=== PATIENT | female | born 1990 | race Caucasian/White ===

== ENCOUNTER 2018-10-23 01:16 | Emergency (ER) | payer OTHER ==
[2018-10-23 01:29] VITALS: BP 134/90; PULSE 78; RESP 16; TEMP 98.6
--- NOTE | 2018-10-23 01:29 | ED ---
General Adult HPI - General Chief complaint: Skin/Abscess/Foreign Body Stated complaint: Abcess on right forearm Time Seen by Provider: 10/23/18 01:22 Source: patient Mode of arrival: ambulatory - History of Present Illness Initial comments: 28-year-old female presenting today for chief complaint of right forearm redness possible abscess. Patient states about 3 days ago she noticed a bump that looked like a pimple on her right forearm. She states that her boyfriend attempted to pop it. She states that today when looking in the area she saw a surrounding redness that was moving up towards her elbow. Patient was concerned R spread of infection and presents emergency department for further evaluation. Patient denies flulike symptoms denies fevers. Patient denies history of MRSA. Patient denies any recent antibiotic use. Review systems negative. Upon arrival patient appears well no signs of acute distress. Afebrile. - Related Data Previous Rx's Medication Instructions Recorded HYDROcodone/APAP 5-325MG [[place] 1 - 2 tab PO Q4H PRN #12 tab 09/09/15 5-325] Cephalexin [Keflex] 500 mg PO Q6HR 10 Days #40 cap 10/23/18 Sulfamethox-Tmp 800-160Mg [Bactrim 1 tab PO Q12HR 10 Days #20 tab 10/23/18 DS 800-160 mg] Allergies Allergy/AdvReac Type Severity Reaction Status Date / Time No Known Allergies Allergy Verified 09/09/15 17:53 Review of Systems ROS Statement: Those systems with pertinent positive or pertinent negative responses have been documented in the HPI. ROS Other: All systems not noted in ROS Statement are negative. Past Medical History Additional Past Medical History / Comment(s): MISCARRIAGE History of Any Multi-Drug Resistant Organisms: None Reported Past Surgical History: Tonsillectomy Additional Past Surgical History / Comment(s): D&C summer 2013 Past Anesthesia/Blood Transfusion Reactions: No Reported Reaction Past Psychological History: No Psychological Hx Reported Smoking Status: Current every day smoker Past Alcohol Use History: None Reported Past Drug Use History: Marijuana General Exam - General Exam Comments Initial Comments: General: The patient is awake and alert, in no distress, and does not appear acutely ill. Eye: Pupils are equal, round, extra-ocular movements are intact. No nystagmus. There is normal conjunctiva bilaterally. No signs of icterus. Cardiovascular: There is a regular rate and rhythm. No murmur, rub or gallop is appreciated. Respiratory: Lungs are clear to auscultation, respirations are non-labored, breath sounds are equal. No wheezes, stridor, rales, or rhonchi. Musculoskeletal: Normal ROM, no tenderness. Strength 5/5. Sensation intact. Pulses equal bilaterally 2+. Neurological: A&O x 3. CN II-XII intact grossly, There are no obvious motor or sensory deficits. Coordination appears grossly intact. Speech is normal. Skin: Skin is warm and dry. small raised crusted over pustul less than 1 cm in diameter no fluctuance. Small amount induration with surrounding erythema, approximately 2 inches of streaking proximally. No palpable lymphadenopathy. No crepitus. Patient the skin blistering. Psychiatric: Cooperative, appropriate mood & affect, normal judgment. Course Vital Signs 10/23/18 01:25 Temperature 98.6 F Pulse Rate 78 Respiratory 16 Rate Blood Pressure 134/90 O2 Sat by Pulse 94 L Oximetry Medical Decision Making - Medical Decision Making 28-year-old female presenting for possible abscess. There is no evidence of fluctuant abscess on examination there is very small pustule that appears to have been previously drained there is induration and surrounding cellulitis. Small amount of proximal spread of erythema. no previous abx use. No MRSA history. She is afebrile nontoxic appearing no signs of sepsis. Patient was given an IM dose of ceftriaxone sterile pack of Bactrim. Patient will be di scharged with oral antibiotics Keflex and Bactrim. Return parameters were discussed at length area was outlined and patient was discharged appearing well she is agreeable to all return parameters which were discussed in detail. Disposition Clinical Impression: Cellulitis Disposition: HOME SELF-CARE Condition: Good Instructions (If sedation given, give patient instructions): Cellulitis (ED) Additional Instructions: Please use medication as discussed. Please follow-up with family doctor in the next 2 days . Please watch the spread of redness as discussed, if there is signficiant spread outside of the line (>1-2 in) in a short amount of time, please immediately return to the ER as discussed. Please return to emergency room if the symptoms increase or worsen or for any other concerns-including flu- like symptoms, fever. Prescriptions: Sulfamethox-Tmp 800-160Mg [Bactrim DS 800-160 mg] 1 tab PO Q12HR 10 Days #20 tab Cephalexin [Keflex] 500 mg PO Q6HR 10 Days #40 cap Is patient prescribed a controlled substance at d/c from ED?: No Referrals: Tara Packer MD [Primary Care Provider] - 1-2 days Time of Disposition: 01:34
[2018-10-23] MEDS ORDERED: cefTRIAXone 1,000 MG VIAL (IM USE) IM STA (01:32)
[2018-10-23] MEDS ORDERED: SULFAMETH-TMP DS STARTER PACK 2 TAB BTL PO STA (01:33)
== END 2018-10-23 01:53 | disposition home or self-care (01) ==
LOC: EC 01:16
DX: L03.113 Cellulitis of right upper limb (principal); F17.200 Nicotine dependence, unspecified, uncomplicated
CPT/HCPCS: 99283; 96372; J0696

== ENCOUNTER 2019-07-27 05:57 | Inpatient (IN) | payer OTHER ==
[2019-07-27] MEDS ORDERED: METHYLERGONOVINE 0.2 MG/ML 1 ML AMP IM PRN (06:19)
[2019-07-27] MEDS ORDERED: TERBUTALINE 1 MG/ML VIAL SQ PRN (06:19)
[2019-07-27] MEDS ORDERED: OXYTOCIN 10 UNIT/ML 1 ML VIAL IM PRN (06:19)
[2019-07-27] MEDS ORDERED: LIDOCAINE 0.5% (PF) 5 MG/ML (50 ML SDV) SQ PRN (06:19)
[2019-07-27] MEDS ORDERED: CARBOPROST TROMETHAMINE 250 MCG/ML 1 ML AMP IM PRN (06:19)
[2019-07-27] MEDS: LACTATED RINGERS 1,000 ML IV SCH ×2 (06:36→11:18)
[2019-07-27] MEDS: OXYTOCIN 30 UNITS/500 ML NS 30 UNIT in SALINE 1 500ML.BAG IV SCH (06:42)
[2019-07-27 07:01] LABS: Basophils % (A) 0 %; Eosinophils # (A) 0.1 k/uL (0-0.7); Eosinophils % (A) 2 %; HCT 33.2 % (34.0-46.0); HGB 11.1 gm/dL (11.4-16.0); Lymphocytes # (A) 1.3 k/uL (1.0-4.8); Lymphocytes % (A) 22 %; MCH 32.6 pg (25.0-35.0); MCHC 33.6 g/dL (31.0-37.0); Mean Platelet Volume 7.5; Monocytes # (A) 0.3 k/uL (0-1.0); Monocytes % (A) 4 %; Neutrophils # (A) 4.3 k/uL (1.3-7.7); Neutrophils % (A) 70 %; Platelet Count 182 k/uL (150-450); RBC 3.42 m/uL (3.80-5.40); RDW 13.1 % (11.5-15.5); WBC 6.2 k/uL (3.8-10.6)
[2019-07-27 07:10] LABS: Amphetamine Screen,Urine Not Detected (NotDetected); Barbiturate Screen,Urine Not Detected (NotDetected); Benzodiazepines Screen,Urine Not Detected (NotDetected); Cocaine Screen,Urine Not Detected (NotDetected); Methadone Screen, Urine Not Detected (NotDetected); Opiate Screen,Urine Not Detected (NotDetected); Oxycodone Screen, Urine Not Detected (NotDetected); Phencyclidine Screen,Urine Not Detected (NotDetected); Tricyclic Antidepressant,Urine Not Detected (NotDetected); Urn Cannabinoid Scrn Not Detected (NotDetected)
--- NOTE | 2019-07-27 08:05 | P.HPOB ---
History of Present Illness H&P Date: 07/27/19 Chief Complaint: Here for elective induction of labor This is a 28-year-old white female 5 para 1031 EDC 08/02/2038 weeks gestation. Patient presents today for elective induction of labor with favorable multiparous cervix. Fetus is been active throughout the . She admits to mild irregular uterine contractions, denies fluid leakage or vaginal bleeding. Past medical history is significant for positive hepatitis B, positive hepatitis C. Patient has seen infectious disease and plan is for follow-up . She is a history of anxiety as well. Past surgical history D&C for miscarriages, tonsillectomy. Current medications vitamins daily. ALLERGIES none known. Family history significant for Down syndrome and diabetes. Social history patient is single, she smokes currently one half pack tobacco per day, she has a history of heroin, [place], and marijuana. 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 history is significant for blood type O+, rubella status immune. Pap smear showing low-grade changes. Group B strep cultures negative. One-hour Glucola 145, three-hour GTT within normal limits. Urine drug screen, gonorrhea and chlamydia cultures, HIV testing all negative. VDRL nonreactive. On exam she is 5 foot 5 inches, 180 pounds, blood pressure on admission 134/81. The general physical exam is within normal limits. Patient does have multiple tattoos across the body. Abdomen is soft and nontender. Extremities reveal no edema. Chest is clear in all [place]. Cervix is 3-4 cm dilated, 60% effaced, an terior, soft, vertex, -2. Artificial amniorrhexis reveals clear fluid. heart rate is consistent with reactive NST. Impression: 39 week intrauterine , here for elective induction of l abor. Positive hepatitis B and C, and history of substance abuse. Late care. Plan: Oxytocin augmentation per hospital protocol. Analgesic options have been reviewed with the patient. Close maternal and surveillance. director career services consult has been placed. Anticipate normal spontaneous vaginal delivery. Review of Systems Constitutional: Reports as per HPI Past Medical History Additional Past Medical History / Comment(s): MISCARRIAGE History of Any Multi-Drug Resistant Organisms: MRSA Date of last positivie culture/infection: right arm MDRO Source:: 2019 Past Surgical History: Tonsillectomy Additional Past Surgical History / Comment(s): D&C summer 2013 Past Anesthesia/Blood Transfusion Reactions: No Reported Reaction Past Psychological History: Anxiety, Panic Disorder Smoking Status: Current every day smoker Past Alcohol Use History: None Reported Past Drug Use History: Heroin, Marijuana Additional Drug Use History / Comment(s): STATES MEDICAL MARIJUANA CARD, pt states not using during , last use of heroin 3 weeks before finding out in Dec she was pregnanct, was using every other day - Past Family History Mother Family Medical History: No Reported History Medications and Allergies Home Medications Medication Instructions Recorded Confirmed Type Ferrous Sulfate [Iron] 325 mg PO BID 07/27/19 07/27/19 History Pnv No.95/Ferrous Fum/Folic AC 1 each PO DAILY 07/27/19 07/27/19 History [ Multivitamin Tablet] Ivq646/Iron/FA/O3/Dha/Epa/Fish 1 each PO DAILY 07/27/19 07/27/19 History [ Multi-Dha Softgel] Allergies Allergy/AdvReac Type Severity Reaction Status Date / Time No Known Allergies Allergy Verified 07/27/19 06:08 Exam Vital Signs Temp Pulse Resp BP 07/27/19 06:07 99.0 F 95 18 134/81 Intake and Output 07/26/19 07/27/19 07/27/19 22:59 06:59 14:59 Other: Weight 81.647 kg See dictation under HPI please Results Result Diagrams: 07/27/19 06:45 Abnormal Lab Results - Last 24 Hours (Table) 07/27/19 Range/Units 06:45 RBC 3.42 L (3.80-5.40) m/uL Hgb 11.1 L (11.4-16.0) gm/dL Hct 33.2 L (34.0-46.0) % Assessment and Plan Assessment: 39 week intrauterine , history of hepatitis B and hepatitis C, history of substance abuse, late care. Here for elective induction of labor. All signs reassuring. Plan: Close maternal and surveillance. Oxytocin per hospital protocol. director career services consult has been placed. Anticipate normal spontaneous vaginal delivery. Time with Patient: Less than 30
[2019-07-27] MEDS ORDERED: ROPIVACAINE 5MG/ML 20ML VIAL ONE (10:55)
[2019-07-27] MEDS ORDERED: SODIUM CHLORIDE 0.9% 100 ML BAG ONE (10:55)
[2019-07-27] MEDS ORDERED: fentaNYL (PF) 50 MCG/ML 5 ML AMP ONE (10:55)
[2019-07-27] MEDS ORDERED: diphenhydrAMINE 50 MG/ML 1 ML VIAL IVP PRN ×2 (13:47)
[2019-07-27] MEDS ORDERED: LANOLIN CREAM 5 GM TUBE TOPICAL PRN (13:47)
[2019-07-27] MEDS ORDERED: WITCH HAZEL 1 EACH MED..PAD TOPICAL PRN (13:47)
[2019-07-27] MEDS ORDERED: ZOLPIDEM 5 MG TAB PO PRN (13:47)
[2019-07-27] MEDS ORDERED: HYDROCORTISONE 2.5% RECTAL CREAM 30 GM TUBE RECTAL PRN (13:47)
[2019-07-27] MEDS ORDERED: diphenhydrAMINE 50 MG CAP PO PRN (13:47)
[2019-07-27] MEDS ORDERED: BENZOCAINE/MENTHOL SPRAY 1 GM/SPRAY AEROSOL TOPICAL PRN (13:47)
[2019-07-27] MEDS ORDERED: SIMETHICONE 80 MG CHEWABLE PO PRN (13:47)
[2019-07-27] MEDS ORDERED: diphenhydrAMINE 25 MG CAP PO PRN (13:47)
--- NOTE | 2019-07-27 13:47 | P.PROBDLV ---
Vaginal Delivery Note - . Vaginal Delivery Note: This is a 28-year-old white female 5 para 1031 EDC 08/03/2019 at 39 weeks gestation. Patient presented for induction with favorable multiparous cervix. History is significant for late care, history of substance abuse, hepatitis B and C positive. Please see dictated history and physical for details. Group B strep cultures negative. Artificial amniorrhexis revealed very light meconium-stained fluid. Oxytocin was started and titrated per hospital protocol. Patient requested epidural and did well with same. heart tones were reassuring throughout the first and second stages of labor. Patient was judged to be completely dilated at 1327 hrs. and began the second stage of labor at that time. The perineal body was prepped and draped in usual sterile fashion. With excellent expulsive efforts the 's head delivered occiput anterior and restituted accordingly. There was a nuchal cord 1 that was reduced. The oropharynx, nasopharynx, and external nares were all bulb suctioned on the perineal body. Patient was officially delivered of a liveborn male at 1333 hours. Umbilical cord was doubly clamped and ligated, he was handed to waiting nurses for evaluation where scores of 9 and 9 at one and 5 minutes respectively were given. Placenta delivered spontaneously, it was inspected and noted to be intact with trivascular cord at 1336 hours. At this time the perineal body is redraped. Careful inspection of the cervix, vagina, perineum, periurethral, and perirectal areas revealed a small right labial laceration. This was repaired in the usual fashion with a single [id number] suture of repeat. Fundus is firm and in the midline, symmetric and 18 week size. Estimated blood loss 200 mL's. Patient is requesting circumcision for her son.
[2019-07-27] MEDS ORDERED: OXYTOCIN 20 UNITS/1000 ML NS 1,000 ML IV SCH (14:00)
[2019-07-27] MEDS: IBUPROFEN 600 MG TAB PO PRN ×2 (15:46→22:44)
[2019-07-27] MEDS: ACETAMINOPHEN TAB 325 MG TAB PO PRN (20:23)
[2019-07-27] MEDS: SENNOSIDES-DOCUSATE SODIUM 1 EACH TAB PO SCH (20:24)
[2019-07-28] MEDS ORDERED: BUTORPHANOL 1 MG/ML 1 ML VIAL IV PRN (00:05)
[2019-07-28 00:15] LABS: Basophils % (A) 0 %; Eosinophils # (A) 0.1 k/uL (0-0.7); Eosinophils % (A) 1 %; HCT 27.6 % (34.0-46.0); Lymphocytes # (A) 1.2 k/uL (1.0-4.8); Lymphocytes % (A) 17 %; MCH 32.2 pg (25.0-35.0); MCHC 33.5 g/dL (31.0-37.0); Mean Platelet Volume 7.6; Monocytes # (A) 0.3 k/uL (0-1.0); Monocytes % (A) 5 %; Neutrophils # (A) 5.4 k/uL (1.3-7.7); Neutrophils % (A) 76 %; Platelet Count 173 k/uL (150-450); RBC 2.88 m/uL (3.80-5.40); RDW 12.8 % (11.5-15.5); WBC 7.1 k/uL (3.8-10.6)
[2019-07-28 00:27] LABS: HGB 9.3 gm/dL (11.4-16.0)
--- NOTE | 2019-07-28 00:44 | P.PN ---
Progress Note - Text Progress Note Date: 07/28/19 I responded to the bedside by request of nursing staff who recognized increased bleeding. Patient states that approximately 9:30 she passed a large clot. She has continued to pass clots, nursing estimate is over 1000 mL blood loss. Pulse 99. Patient complains that "it's like I am having contractions". On examination at the bedside external genitalia is intact. Previously placed stitch is well approximated. IV is restarted, stat CBC is drawn, and Stadol 1 mg is given. The uterus is at the umbilicus on palpation. I am able to express another 500 mL of clot from high in the uterine fundus on bimanual examination. Patient tolerates this reasonably well. After examination bleeding appears normal. No further clot passage. Pulse 90, blood pressure 122/81. Symptomatically patient states she is feeling greatly improved. Hemoglobin returns at 9.3. We'll continue IV access through the night, giving another 500 mL of fluid at this time. Consider repeat CBC in the morning pending progress. Continue close surveillance.
[2019-07-28] MEDS: LACTATED RINGERS 1,000 ML IV SCH ×2 (01:28→20:04)
[2019-07-28] MEDS: ACETAMINOPHEN TAB 325 MG TAB PO PRN ×2 (05:05→20:03)
[2019-07-28] MEDS: SENNOSIDES-DOCUSATE SODIUM 1 EACH TAB PO SCH ×2 (07:28→20:03)
--- NOTE | 2019-07-28 08:57 | P.DS ---
Providers Date of admission: 07/27/19 05:57 Expected date of discharge: 07/28/19 Attending physician: Carmella Nevarez Primary care physician: Stated None Hospital Course: This is a 28-year-old white female 5 para 1031 EDC 08/03/2019 at 39 weeks gestation. Patient presented for induction with favorable multiparous cervix. is remarkable for positive hepatitis B, positive hepatitis C, negative group B strep cultures, blood type O+, rubella status immune. Please see dictated history and physical for details. Artificial amniorrhexis revealed light meconium-stained fluid. Oxytocin was started and titrated per hospital protocol. Patient went on to deliver vaginally a liveborn male infant with scores of 9 and 9 at one and 5 minutes respectively. Infant weighed 6 lbs. 15 oz. or 3145 g. There was an estimated blood loss at the time of delivery of 200 mL and a small right labial laceration. Please see dictated delivery note for details. Approximate 10 hours into the . Patient was noted to have passed several large clots. Examination at the bedside did reveal clots and the uterine fundus, excised manually. Stadol was given 1 mg. Repeat hemoglobin was performed, hemoglobin 9.3. After this, vital signs stabilized. This morning patient is feeling well. Fundus is firm now and in the midline, approximately 18 week size, mobile and nontender. Extremities are negative. Lochia is minimal. Patient feels strong, denies dizziness or lightheadedness. She is not breast-feeding. [place] infant has been circumcised. Patient is judged to be in good condition for discharge home later today. She is reminded no intercourse, tampons or douching. She will use jjwl-ngw-ajlylul Advil or Aleve as needed for pain. I've asked her to call me with any fevers shakes or chills, foul smelling or copious lochia, with the passage of large blood clots, with any pain not alleviated by faoz-cab-srtkemo products, or indeed with any concerns. infant will follow-up with childcare teacher as per recommendations. Patient will see infectious disease specialist for treatment of the hepatitis B and hepatitis C as previously discussed with the . Assessment: Doing well day #1 Patient Condition at Discharge: Good Plan - Discharge Summary Discharge Rx Participant: No New Discharge Prescriptions: No Action Lcj345/Iron/FA/O3/Dha/Epa/Fish [ Multi-Dha Softgel] 1 each PO DAILY Pnv No.95/Ferrous Fum/Folic AC [ Multivitamin Tablet] 1 each PO DAILY Ferrous Sulfate [Iron] 325 mg PO BID Discharge Medication List Ferrous Sulfate [Iron] 325 mg PO BID 07/27/19 [History] Pnv No.95/Ferrous Fum/Folic AC [ Multivitamin Tablet] 1 each PO DAILY 07/27/19 [History] Opc360/Iron/FA/O3/Dha/Epa/Fish [ Multi-Dha Softgel] 1 each PO DAILY 07/27/19 [History] Follow up Appointment(s)/Referral(s): Carmella Nevarez MD [STAFF PHYSICIAN] - 6 Weeks
[2019-07-28] MEDS: IBUPROFEN 600 MG TAB PO PRN ×3 (09:24→23:42)
[2019-07-28] MEDS: OXYTOCIN 30 UNITS/500 ML NS 30 UNIT in SALINE 1 500ML.BAG IV SCH (21:11)
[2019-07-29] MEDS: IBUPROFEN 600 MG TAB PO PRN (07:59)
[2019-07-29] MEDS: SENNOSIDES-DOCUSATE SODIUM 1 EACH TAB PO SCH (08:00)
[2019-07-29 08:01] VITALS: BP 110/76; PULSE 90; RESP 16; TEMP 98.2
== END 2019-07-29 13:41 | disposition home or self-care (01) | DRG 806 ==
LOC: 4FBP 05:57
PROVIDERS: ADMIT Obstetrics & Gynecology; ATTEND Obstetrics & Gynecology
PROC: 3E033VJ Introduction of Other Hormone into Peripheral Vein, Percutaneous Approach (ICD-10-PCS; principal; 2019-07-27)
PROC: 0HQ9XZZ Repair Perineum Skin, External Approach (ICD-10-PCS; principal; 2019-07-27)
PROC: 10907ZC Drainage of Amniotic Fluid, Therapeutic from Products of Conception, Via Natural or Artificial Opening (ICD-10-PCS; principal; 2019-07-27)
PROC: 3E0R3BZ Introduction of Anesthetic Agent into Spinal Canal, Percutaneous Approach (ICD-10-PCS; principal; 2019-07-27)
PROC: 10E0XZZ Delivery of Products of Conception, External Approach (ICD-10-PCS; principal; 2019-07-27)
PROC: 00HU33Z Insertion of Infusion Device into Spinal Canal, Percutaneous Approach (ICD-10-PCS; principal; 2019-07-27)
DX: O77.0 Labor and delivery complicated by meconium in amniotic fluid (principal); O98.42 Viral hepatitis complicating childbirth; Z37.0 Single live birth; B19.10 Unspecified viral hepatitis B without hepatic coma; O72.1 Other immediate postpartum hemorrhage; O69.81X0 Labor and delivery complicated by cord around neck, without compression, not applicable or unspecified; B19.20 Unspecified viral hepatitis C without hepatic coma; O70.0 First degree perineal laceration during delivery; O99.334 Smoking (tobacco) complicating childbirth; F11.11 Opioid abuse, in remission; F12.11 Cannabis abuse, in remission; F15.11 Other stimulant abuse, in remission; F17.210 Nicotine dependence, cigarettes, uncomplicated; Z3A.39 39 weeks gestation of pregnancy; Z79.899 Other long term (current) drug therapy; Z86.14 Personal history of Methicillin resistant Staphylococcus aureus infection; Z86.59 Personal history of other mental and behavioral disorders; Z90.89 Acquired absence of other organs; Z98.890 Other specified postprocedural states; Z82.79 Family history of other congenital malformations, deformations and chromosomal abnormalities; Z83.3 Family history of diabetes mellitus
CPT/HCPCS: 80306; 85025; 86850; 86900; 86901; 88307

== ENCOUNTER 2021-10-06 22:54 | Inpatient (IN) | payer OTHER ==
[2021-10-06] MEDS ORDERED: OXYTOCIN 10 UNIT/ML 1 ML VIAL IM PRN (23:14)
[2021-10-06] MEDS ORDERED: CARBOPROST TROMETHAMINE 250 MCG/ML 1 ML AMP IM PRN (23:14)
[2021-10-06] MEDS ORDERED: TERBUTALINE 1 MG/ML VIAL SQ PRN (23:14)
[2021-10-06] MEDS ORDERED: LIDOCAINE 0.5% (PF) 5 MG/ML (50 ML SDV) SQ PRN (23:14)
[2021-10-06] MEDS ORDERED: METHYLERGONOVINE 0.2 MG/ML 1 ML AMP IM PRN (23:14)
[2021-10-06] MEDS ORDERED: OXYTOCIN 30 UNITS/500 ML NS 30 UNIT in SALINE 1 500ML.BAG IV SCH (23:15)
[2021-10-06] MEDS ORDERED: LACTATED RINGERS 1,000 ML IV SCH (23:15)
[2021-10-06] MEDS ORDERED: PENICILLIN G POTASSIUM 5,000,000 UNIT in DEXTROSE 5% IN WATER 100 ML IVPB ONE ×2 (23:30)
[2021-10-06] MEDS ORDERED: ROPIVACAINE 5MG/ML 20ML VIAL ONE (23:39)
[2021-10-06] MEDS ORDERED: fentaNYL (PF) 50 MCG/ML 5 ML AMP ONE (23:39)
[2021-10-06] MEDS ORDERED: SODIUM CHLORIDE 0.9% 100 ML BAG ONE (23:39)
[2021-10-06 23:55] LABS: Basophils % (A) 0 %; Eosinophils % (A) 1 %; HCT 37.9 % (34.0-46.0); HGB 12.6 gm/dL (11.4-16.0); Lymphocytes # (A) 0.9 k/uL (1.0-4.8); Lymphocytes % (A) 13 %; MCH 32.7 pg (25.0-35.0); MCHC 33.2 g/dL (31.0-37.0); MCV 98.5 fL (80.0-100.0); Mean Platelet Volume 8.1; Monocytes # (A) 0.4 k/uL (0-1.0); Monocytes % (A) 6 %; Neutrophils # (A) 5.3 k/uL (1.3-7.7); Neutrophils % (A) 79 %; Platelet Count 154 k/uL (150-450); RBC 3.84 m/uL (3.80-5.40); RDW 13.5 % (11.5-15.5); WBC 6.7 k/uL (3.8-10.6)
--- NOTE | 2021-10-07 00:24 | P.HPOB ---
History of Present Illness H&P Date: 10/07/21 Chief Complaint: Strong regular uterine contractions This is a 31-year-old 6 para 2031 EDC 10/24/2021 at 37-4/7 weeks' gestation who presents from home with strong regular uterine contractions. She denies fluid leakage or vaginal bleeding. Fetus is been active throughout the . Past medical history significant for anxiety, hepatitis B, hepatitis C in the past. Past surgical history D&Cs for miscarriages, tonsillectomy as a child. Social history is significant for V pain, marijuana in the past, heroin, methamphetamines, and tobacco in the past. 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 Family history significant for diabetes and Down syndrome. ALLERGIES none known. Obstetric history significant for blood type O positive, rubella status immune. Remaining labs uncertain as history and physical was not present at this time. On exam patient is 5 foot 5 inches, 168 pounds, blood pressure 139/88 on admission. General physical exam is within normal limits. Cervix is 9 cm dilated, 90% effaced, -1 station, vertex presentation. Artificial amniorrhexis reveals clear fluid. heart rate is consistent with reactive NST. Uterine contractions are occurring spontaneously every 3-4 minutes apart. Epidural has been placed. Impression: 37-4/7 weeks intrauterine , active labor. Group B strep status unknown. All signs otherwise reassuring. Medical history in the past consistent with hepatitis B and hepatitis C. Drug history also noted. Plan: Close maternal and surveillance. Anticipate normal spontaneous vaginal delivery. Penicillin G prophylaxis has been instituted. Epidural has been placed. Review of Systems Constitutional: Reports as per HPI Past Medical History Additional Past Medical History / Comment(s): MISCARRIAGE History of Any Multi-Drug Resistant Organisms: MRSA Date of last positivie culture/infection: right arm MDRO Source:: 2018 Past Surgical History: Tonsillectomy Additional Past Surgical History / Comment(s): D&C summer 2013 Past Anesthesia/Blood Transfusion Reactions: No Reported Reaction Past Psychological History: Anxiety Smoking Status: Former smoker, Vaper Past Drug Use History: Heroin, Marijuana, Methamphetamine - Past Family History Mother Family Medical History: No Reported History Additional Family Medical History / Comment(s): down's syndrome Medications and Allergies Home Medications Medication Instructions Recorded Confirmed Type Ferrous Sulfate [Iron] 325 mg PO ONCE 07/27/19 10/06/21 History Pnv No.95/Ferrous Fum/Folic AC 1 each PO DAILY 07/27/19 10/06/21 History [ Multivitamin Tablet] Allergies Allergy/AdvReac Type Severity Reaction Status Date / Time No Known Allergies Allergy Verified 10/06/21 23:00 Exam Intake and Output 10/06/21 10/06/21 10/07/21 14:59 22:59 06:59 Other: Weight 76.204 kg See dictation under HPI please Results Result Diagrams: 10/06/21 23:36 Abnormal Lab Results - Last 24 Hours (Table) 10/06/21 Range/Units 23:36 Lymphocytes # 0.9 L (1.0-4.8) k/uL Assessment and Plan Assessment: 37-4/7 weeks intrauterine , active spontaneous labor. All signs reassuring. Plan: Continue close maternal and surveillance. Antibiotic prophylaxis given. Urine drug screen will be sent to the lab. Anticipate normal spontaneous vaginal delivery. Time with Patient: Less than 30
[2021-10-07 01:09] LABS: Amphetamine Screen,Urine Not Detected (NotDetected); Barbiturate Screen,Urine Not Detected (NotDetected); Benzodiazepines Screen,Urine Not Detected (NotDetected); Cocaine Screen,Urine Not Detected (NotDetected); Methadone Screen, Urine Not Detected (NotDetected); Opiate Screen,Urine Not Detected (NotDetected); Oxycodone Screen, Urine Not Detected (NotDetected); Phencyclidine Screen,Urine Not Detected (NotDetected); Tricyclic Antidepressant,Urine Not Detected (NotDetected); Urn Cannabinoid Scrn Not Detected (NotDetected)
[2021-10-07] MEDS ORDERED: LANOLIN CREAM 5 GM TUBE TOPICAL PRN (01:46)
[2021-10-07] MEDS ORDERED: diphenhydrAMINE 50 MG/ML 1 ML VIAL IVP PRN ×2 (01:46)
[2021-10-07] MEDS ORDERED: diphenhydrAMINE 25 MG CAP PO PRN (01:46)
[2021-10-07] MEDS ORDERED: HYDROCORTISONE 2.5% RECTAL CREAM 30 GM TUBE RECTAL PRN (01:46)
[2021-10-07] MEDS ORDERED: diphenhydrAMINE 50 MG CAP PO PRN (01:46)
[2021-10-07] MEDS ORDERED: SIMETHICONE 80 MG CHEWABLE PO PRN (01:46)
[2021-10-07] MEDS ORDERED: BENZOCAINE/MENTHOL SPRAY 1 GM/SPRAY AEROSOL TOPICAL PRN (01:46)
[2021-10-07] MEDS ORDERED: ZOLPIDEM 5 MG TAB PO PRN (01:46)
--- NOTE | 2021-10-07 01:46 | P.PROBDLV ---
Vaginal Delivery Note - . Vaginal Delivery Note: This is a 31-year-old female 6 para 2031 EDC 10/24/2021 at 37-4/7 weeks' gestation who presented with active labor, regular strong contractions, cervix 6 cm on admission. History is significant in the past for hepatitis B, hepatitis C, methamphetamine heroin and marijuana use. Please see my dictated history and physical for details. Penicillin G was given. Epidural was placed per her request. Artificial amniorrhexis revealed clear fluid. Patient became completely dilated at 1:10 AM. She began the second stage of labor at that time. Perineal body was prepped and draped in usual sterile fashion. Infant's head delivered occiput anterior, he restituted accordingly. There was no nuchal cord noted. The right or anterior shoulder was delivered easily from underneath the pubic symphysis at which time the oropharynx, nasopharynx, and external nares were all bulb suctioned. Patient was officially delivered of a liveborn male infant at 0132 hours. Umbilical cord was doubly clamped and ligated, he was handed to waiting nurses for evaluation where scores of 9 and 9 at one and 5 minutes respectively were given. Placenta delivered spontaneously, it was inspected and noted to be intact with trivascular cord at 0137 hours. At this time the perineal body was redraped. Careful inspection of the cervix, vagina, perineum, perirectal and. Urethral areas revealed no lacerations or defects. Fundus is firm and in the midline, symmetric and 18 week size upon completion of delivery. All sponge needle and instrument counts are correct. Patient is requesting circumcision for her infant son. Estimated blood loss 200 mL's. 's weight 7 lbs. 14 oz. or 3565 g.
[2021-10-07] MEDS: IBUPROFEN 600 MG TAB PO PRN ×3 (02:28→16:50)
[2021-10-07] MEDS ORDERED: PENICILLIN G POTASSIUM 2,500,000 UNIT in DEXTROSE 5% IN WATER 100 ML IVPB SCH ×2 (04:00)
[2021-10-07] MEDS: SENNOSIDES-DOCUSATE SODIUM 1 EACH TAB PO SCH ×2 (09:12→20:14)
[2021-10-07 12:09] VITALS: RESP 16
[2021-10-07] MEDS: ACETAMINOPHEN TAB 325 MG TAB PO PRN ×2 (14:10→20:18)
[2021-10-08] MEDS: IBUPROFEN 600 MG TAB PO PRN ×2 (02:21→09:14)
[2021-10-08 06:51] LABS: Basophils % (A) 1 %; Eosinophils # (A) 0.1 k/uL (0-0.7); Eosinophils % (A) 2 %; HGB 11.3 gm/dL (11.4-16.0); Lymphocytes # (A) 1.2 k/uL (1.0-4.8); Lymphocytes % (A) 24 %; MCH 32.4 pg (25.0-35.0); MCHC 32.4 g/dL (31.0-37.0); MCV 100.1 fL (80.0-100.0); Mean Platelet Volume 8.2; Monocytes # (A) 0.2 k/uL (0-1.0); Monocytes % (A) 5 %; Neutrophils # (A) 3.3 k/uL (1.3-7.7); Neutrophils % (A) 67 %; Platelet Count 165 k/uL (150-450); RDW 13.4 % (11.5-15.5)
--- NOTE | 2021-10-08 07:53 | P.DS ---
Providers Date of admission: 10/06/21 23:05 Expected date of discharge: 10/08/21 Attending physician: Carmella Nevarez Primary care physician: Stated None Hospital Course: this is a 31-year-old female 6 para 2031 EDC 10/24/2021 at 37-4/7 weeks' gestation who presented in active spontaneous labor. History is significant for hepatitis B and hepatitis C in the past, methamphetamine and heroin use in the past. Rubella status is nonimmune. Please see dictated history and physical for details. Spontaneous amniorrhexis revealed clear fluid. Patient went on to quickly deliver a liveborn male with scores of 9 and 9 at one and 5 minutes respectively. He weighed 7 lbs. 14 oz. or 3565 g. There were no lacerations encountered. Estimated blood loss 200 mL's. Please see dictated delivery note for details. This morning the patient is doing well. She is voiding, ambulating, passing flatus without difficulty. fundus is firm and in the midline, symmetric and 18 week size. Perineal body is clean and dry. Breasts are not engorged.Vital signs are stable and she is afebrile. [place] is doing well, circumcision has been performed. Patient is judged to be in very good condition for discharge home. She is requesting tubal ligation and we will schedule this and she returns for the 6 week visit. No intercourse, tampons or douching. Yzju-sot-etiooed Advil or Aleve, or Motrin as needed for pain. Continue taking vitamin daily. Call with any fevers shakes or chills, foul smelling or copious lochia, with the passage of large blood clots, with any pain not alleviated by vsci-xjx-fnvlksb products. Or indeed with any concerns. Assessment: doing well day #1 Patient Condition at Discharge: Good Plan - Discharge Summary Discharge Rx Participant: No New Discharge Prescriptions: No Action Pnv No.95/Ferrous Fum/Folic AC [ Multivitamin Tablet] 1 each PO DAILY Ferrous Sulfate [Iron] 325 mg PO ONCE Discharge Medication List Ferrous Sulfate [Iron] 325 mg PO ONCE 07/27/19 [History] Pnv No.95/Ferrous Fum/Folic AC [ Multivitamin Tablet] 1 each PO DAILY 07/27/19 [History] Follow up Appointment(s)/Referral(s): Carmella Nevarez MD [STAFF PHYSICIAN] - 6 Weeks Discharge Disposition: HOME SELF-CARE
[2021-10-08] MEDS: SENNOSIDES-DOCUSATE SODIUM 1 EACH TAB PO SCH (09:56)
[2021-10-08 09:59] VITALS: BP 113/77; PULSE 97; TEMP 98
== END 2021-10-08 12:30 | disposition home or self-care (01) | DRG 806 ==
LOC: FBPOP 22:54 → 4FBP 23:05
PROVIDERS: ADMIT Obstetrics & Gynecology; ATTEND Obstetrics & Gynecology
PROC: 10E0XZZ Delivery of Products of Conception, External Approach (ICD-10-PCS; principal; 2021-10-07)
PROC: 10907ZC Drainage of Amniotic Fluid, Therapeutic from Products of Conception, Via Natural or Artificial Opening (ICD-10-PCS; 2021-10-07)
PROC: 4A0HXCZ Measurement of Products of Conception, Cardiac Rate, External Approach (ICD-10-PCS; 2021-10-07)
DX: O99.334 Smoking (tobacco) complicating childbirth (principal); B19.10 Unspecified viral hepatitis B without hepatic coma; Z37.0 Single live birth; O98.42 Viral hepatitis complicating childbirth; F41.9 Anxiety disorder, unspecified; B18.2 Chronic viral hepatitis C; F17.290 Nicotine dependence, other tobacco product, uncomplicated; O99.344 Other mental disorders complicating childbirth; Z3A.37 37 weeks gestation of pregnancy; Z87.891 Personal history of nicotine dependence; Z87.59 Personal history of other complications of pregnancy, childbirth and the puerperium; Z86.14 Personal history of Methicillin resistant Staphylococcus aureus infection
CPT/HCPCS: 59025; 80306; 85025; 86850; 86900; 86901; 99213

== ENCOUNTER 2023-04-27 10:36 | Emergency (ER) | payer OTHER ==
[2023-04-27 11:05] VITALS: BP 115/71; PULSE 79; RESP 18; TEMP 98.8
--- NOTE | 2023-04-27 11:13 | ED ---
Nausea/Vomiting/Diarrhea HPI - General Chief complaint: Nausea/Vomiting/Diarrhea Stated complaint: vomiting Time Seen by Provider: 04/27/23 10:46 Source: patient, RN notes reviewed Mode of arrival: ambulatory Limitations: no limitations - History of Present Illness Initial comments: 32-year-old female presents emergency department with chief complaint of nausea and vomiting. Patient states she had vomiting on and off for last few days and states that she missed work. Patient states that she is at work no patient does admit that she recently found out she was but has no complaints including abdominal pain, vaginal bleeding or vaginal discharge she states she has had vomiting in the past with some pregnancies but this was a little worse where she missed work. Patient offers no other complaints denies fevers or chills. - Related Data Home Medications Medication Instructions Recorded Confirmed Ferrous Sulfate [Iron] 325 mg PO ONCE 07/27/19 10/06/21 Pnv No.95/Ferrous Fum/Folic AC 1 each PO DAILY 07/27/19 10/06/21 [ Multivitamin Tablet] Previous Rx's Medication Instructions Recorded Ondansetron Odt [Zofran Odt] 4 mg PO Q8HR PRN #10 tab 04/27/23 Allergies Allergy/AdvReac Type Severity Reaction Status Date / Time No Known Allergies Allergy Verified 04/27/23 10:51 Review of Systems ROS Statement: Those systems with pertinent positive or pertinent negative responses have been documented in the HPI. ROS Other: All systems not noted in ROS Statement are negative. Past Medical History Additional Past Medical History / Comment(s): MISCARRIAGE History of Any Multi-Drug Resistant Organisms: MRSA Date of last positivie culture/infection: right arm MDRO Source:: 2019 Past Surgical History: Tonsillectomy Additional Past Surgical History / Comment(s): D&C summer 2013 Past Anesthesia/Blood Transfusion Reactions: No Reported Reaction Past Psychological History: Anxiety Smoking Status: Former smoker, Vaper Past Alcohol Use History: None Reported Past Drug Use History: Heroin, Marijuana, Methamphetamine - Past Family History Mother Family Medical History: No Reported History Additional Family Medical History / Comment(s): down's syndrome Brother(s) Family Medical History: Seizure Disorder General Exam Limitations: no limitations General appearance: alert, in no apparent distress Head exam: Present: atraumatic, normocephalic, normal inspection Eye exam: Present: normal appearance, PERRL, EOMI. Absent: scleral icterus, conjunctival injection, periorbital swelling ENT exam: Present: normal exam, mucous membranes moist Neck exam: Present: normal inspection. Absent: tenderness, meningismus, lymphadenopathy Respiratory exam: Present: normal lung sounds bilaterally. Absent: respiratory distress, wheezes, rales, rhonchi, stridor Cardiovascular Exam: Present: regular rate, normal rhythm, normal heart sounds. Absent: systolic murmur, diastolic murmur, rubs, gallop, clicks GI/Abdominal exam: Present: soft, normal bowel sounds. Absent: distended, tenderness, guarding, rebound, rigid Course Vital Signs 04/27/23 10:48 Temperature 98.8 F Pulse Rate 79 Respiratory 18 Rate Blood Pressure 115/71 O2 Sat by Pulse 100 Oximetry Medical Decision Making - Medical Decision Making Was pt. sent in by a medical professional or institution (, PA, HOGSHEAD INSPECTOR, urgent care, hospital, or correction...) When possible be specific @ -No Did you speak to anyone other than the patient for history (EMS, parent, family, police, friend...)? What history was obtained from this source @ -No Did you review nursing and triage notes (agree or disagree)? Why? @ -I reviewed and agree with nursing and triage notes Were old charts reviewed (outside hosp., previous admission, EMS record, old EKG, old radiological studies, urgent care reports/EKG's, correction records)? Report findings @ -No old charts were reviewed Differential Diagnosis (chest pain, altered mental status, abdominal pain women, abdominal pain men, vaginal bleeding, weakness, fever, dyspnea, syncope, headache, dizziness, GI bleed, back pain, seizure, CVA, palpatations, mental health, musculoskeletal)? @ -[Differential Abdominal Pain Women: Appendicitis, Cholecystitis, diverticulosis, ischemic bowel, pancreatitis, hepatitis, UTI, gastroenteritis, AAA, incarcerated hernia, bowel obstruction, constipation, inflammatory bowel, hepatitis, peptic ulcer disease, splenic infarction, perforated viscus, vulvitis, ovarian torsion, PID, kidney stone, placenta abruption, this is not meant to be an all-inclusive list EKG interpreted by me (3pts min.). @ -None none X-rays interpreted by me (1pt min.). @ -None done CT interpreted by me (1pt min.). @ -None done U/S interpreted by me (1pt. min.). @ -None done What testing was considered but not performed or refused? (CT, X-rays, U/S, labs)? Why? @ -[Recommended ultrasound, laboratory studies and urinalysis secondary to with associated vomiting. Patient Clines stating that she has 3 kids outside her car states that she just needs a work note. What meds were considered but not given or refused? Why? @ -None Did you discuss the management of the patient with other professionals (professionals i.e. DrZay, PA, HOGSHEAD INSPECTOR, lab, RT, psych nurse, social science teacher, antique furniture repairer, teacher, environmental health officer, casework manager)? Give summary @ -No Was smoking cessation discussed for >3mins.? @ -No Was critical care preformed (if so, how long)? @ -No Were there social determinants of health that impacted care today? How? (Homelessness, low income, unemployed, alcoholism, drug addiction, transportation, low edu. Level, literacy, decrease access to med. care, correction, rehab)? @ -No Was there de-escalation of care discussed even if they declined (Discuss DNR or withdrawal of care, Hospice)? DNR status @ -No What co-morbidities impacted this encounter? (DM, HTN, Smoking, COPD, CAD, C ancer, CVA, ARF, Chemo, Hep., AIDS, mental health diagnosis, sleep apnea, morbid obesity)? @ -None Was patient admitted / discharged? Hospital course, mention meds given and route, prescriptions, significant lab abnormalities, going to OR and other pertinent info. @ -[Discharged patient was provided antiemetics as requested. She states she feels comfortable taking Zofran. Return parameters rosalind. Undiagnosed new problem with uncertain prognosis? @ -No Drug Therapy requiring intensive monitoring for toxicity (Heparin, Nitro, Insulin, Cardizem)? @ -No Were any procedures done? @ -No Diagnosis/symptom? @ -Vomiting Acute, or Chronic, or Acute on Chronic? @ -Acute Uncomplicated (without systemic symptoms) or Complicated (systemic symptoms)? @ -Uncomplicated Side effects of treatment? @ -No Exacerbation, Progression, or Severe Exacerbation? @ -No Poses a threat to life or bodily function? How? (Chest pain, USA, NH, pneumonia, PE, COPD, DKA, ARF, appy, cholecystitis, CVA, Diverticulitis, Homicidal, Suicidal, threat to staff... and all critical care pts) @ -No Disposition Clinical Impression: Nausea/vomiting in Disposition: HOME SELF-CARE Condition: Stable Instructions (If sedation given, give patient instructions): Nausea and Vomiting in (ED) Additional Instructions: Please return to the Emergency Department if symptoms worsen or any other concerns. Prescriptions: Ondansetron Odt [Zofran Odt] 4 mg PO Q8HR PRN #10 tab PRN Reason: Nausea Is patient prescribed a controlled substance at d/c from ED?: No Referrals: None,Stated [Primary Care Provider] - 1-2 days Time of Disposition: 11:13
== END 2023-04-27 11:20 | disposition home or self-care (01) ==
LOC: EC 10:36
DX: O21.9 Vomiting of pregnancy, unspecified (principal); O99.330 Smoking (tobacco) complicating pregnancy, unspecified trimester; F17.290 Nicotine dependence, other tobacco product, uncomplicated; O99.320 Drug use complicating pregnancy, unspecified trimester; F12.90 Cannabis use, unspecified, uncomplicated; F15.90 Other stimulant use, unspecified, uncomplicated; Z86.59 Personal history of other mental and behavioral disorders; Z3A.00 Weeks of gestation of pregnancy not specified
CPT/HCPCS: 99283

== ENCOUNTER 2023-12-08 05:54 | Inpatient (IN) | payer OTHER ==
[2023-12-08] MEDS ORDERED: OXYTOCIN 10 UNIT/ML 1 ML VIAL IM PRN (06:10)
[2023-12-08] MEDS ORDERED: TRANEXAMIC 1,000 MG/100ML-NACL 1,000 MG in EMPTY BAG 1 BAG IV PRN (06:10)
[2023-12-08] MEDS ORDERED: miSOPROStoL 200 MCG TAB RECTAL PRN (06:10)
[2023-12-08] MEDS ORDERED: LIDOCAINE 0.5% (PF) 5 MG/ML (50 ML SDV) SQ PRN (06:10)
[2023-12-08] MEDS ORDERED: miSOPROStoL 200 MCG TAB PO PRN (06:10)
[2023-12-08] MEDS ORDERED: CARBOPROST TROMETHAMINE 250 MCG/ML 1 ML AMP IM PRN (06:10)
[2023-12-08] MEDS ORDERED: TERBUTALINE 1 MG/ML VIAL SQ PRN (06:10)
[2023-12-08] MEDS ORDERED: METHYLERGONOVINE 0.2 MG/ML 1 ML AMP IM PRN (06:10)
[2023-12-08] MEDS: LACTATED RINGERS 1,000 ML IV SCH (06:15)
[2023-12-08 06:22] LABS: Glucose,Whole Blood 88 mg/dL (70-110)
[2023-12-08] MEDS: OXYTOCIN 30 UNITS/500 ML NS 30 UNIT in SALINE 1 500ML.BAG IV SCH (06:30)
[2023-12-08 07:02] LABS: Basophils % (A) 0 %; Eosinophils # (A) 0.1 k/uL (0-0.7); Eosinophils % (A) 2 %; HCT 33.7 % (34.0-46.0); HGB 11.7 gm/dL (11.4-16.0); Lymphocytes # (A) 0.9 k/uL (1.0-4.8); Lymphocytes % (A) 17 %; MCH 33.7 pg (25.0-35.0); MCHC 34.7 g/dL (31.0-37.0); Mean Platelet Volume 8.2; Monocytes # (A) 0.3 k/uL (0-1.0); Monocytes % (A) 6 %; Neutrophils # (A) 3.8 k/uL (1.3-7.7); Neutrophils % (A) 74 %; Platelet Count 189 k/uL (150-450); RBC 3.48 m/uL (3.80-5.40); RDW 13.8 % (11.5-15.5); WBC 5.2 k/uL (3.8-10.6)
[2023-12-08 07:41] LABS: Amphetamine Screen,Urine Not Detected (NotDetected); Barbiturate Screen,Urine Not Detected (NotDetected); Benzodiazepines Screen,Urine Not Detected (NotDetected); Cocaine Screen,Urine Not Detected (NotDetected); Methadone Screen, Urine Not Detected (NotDetected); Opiate Screen,Urine Not Detected (NotDetected); Oxycodone Screen, Urine Not Detected (NotDetected); Phencyclidine Screen,Urine Not Detected (NotDetected); Tricyclic Antidepressant,Urine Not Detected (NotDetected); Urn Cannabinoid Scrn Not Detected (NotDetected)
--- NOTE | 2023-12-08 09:30 | P.HPOB ---
History of Present Illness H&P Date: 12/08/23 Chief Complaint: induction of laobr Ms. Gr is a 33 year old at 39 weeks and 0 days with EDC of 12/14/2022 by 12 week who presents for medical induction of labor. The has been complicated by a remote maternal history of IV drug use and prior Hepatitis C infection that has now resolved. She has worked with a GI specialist in the past. The patient is also a diet-controlled gestational diabetic. She has undergone surveillance which has been reassuring. The fetus is estimated in the 46%ile based on a 32 week growth US. Fasting blood glucose this morning is 88. work-up: blood type O positive, antibody screen negative, rubella non- immune, VDRL non-reactive, HBsAg negative, HIV negative, HCV reactive, HCV Quant not detected (resolved infection), 1 hour GTT abnormal, 3 hour GTT abnormal, GBS negative. Obstetric history: 3 full term vaginal deliveries, no complications, largest infant 7#14ounces. 1 VTP with D&C, 1 missed with D&C, 1 SAB Past Medical History Additional Past Medical History / Comment(s): MISCARRIAGE History of Any Multi-Drug Resistant Organisms: None Reported, MRSA Date of last positivie culture/infection: right arm MDRO Source:: 2018 Past Surgical History: Tonsillectomy Additional Past Surgical History / Comment(s): D&C summer 2013 Past Anesthesia/Blood Transfusion Reactions: No Reported Reaction Past Psychological History: Anxiety Smoking Status: Former smoker, Vaper Past Alcohol Use History: None Reported Past Drug Use History: Heroin, Marijuana, Methamphetamine Additional Drug Use History / Comment(s): Enplug MARIJUANA CARD, pt states not using during , last use of heroin 3 weeks before finding out in Dec she was pregnanct, was using every other day - Past Family History Mother Family Medical History: No Reported History Additional Family Medical History / Comment(s): down's syndrome Brother(s) Family Medical History: Seizure Disorder Medications and Allergies Home Medications Medication Instructions Recorded Confirmed Type Pnv No.95/Ferrous Fum/Folic AC 1 each PO DAILY 07/27/19 12/08/23 History [ Multivitamin Tablet] Aspirin 81 mg PO DAILY 12/08/23 12/08/23 History Allergies Allergy/AdvReac Type Severity Reaction Status Date / Time No Known Allergies Allergy Verified 12/08/23 06:09 Exam Vital Signs Temp Pulse Resp BP 12/08/23 06:08 96.6 F L 83 16 138/85 Intake and Output 12/07/23 12/08/23 12/08/23 22:59 06:59 14:59 Other: Weight 90.265 kg Focused physical exam is performed. This is a healthy-appearing in no a pparent distress. Breathing is non-labored. Abdomen is gravid and non-tender. Cervical exam is 3/60/-3. AROM is undertaken with clear fluid noted. Extremities non-tender and non-edematous. heart tones are Category I and tocometer is graphing contractions every 2-4 minutes. Results Result Diagrams: 12/08/23 06:10 Abnormal Lab Results - Last 24 Hours (Table) 12/08/23 Range/Units 06:10 RBC 3.48 L (3.80-5.40) m/uL Hct 33.7 L (34.0-46.0) % Lymphocytes # 0.9 L (1.0-4.8) k/uL Assessment and Plan Assessment: 33 year old at 39 weeks gestation presenting for medical induction of labor for GDMA1 Plan: Admit, clear liquid diet, pitocin per protocol, epidural prn, continuous EFM and tocometer, anticipate vaginal delivery. Time with Patient: Less than 30
[2023-12-08] MEDS ORDERED: SODIUM CHLORIDE 0.9% 250 ML BAG ONE (10:12)
[2023-12-08] MEDS ORDERED: fentaNYL (PF) 50 MCG/ML 5 ML AMP ONE (10:12)
[2023-12-08] MEDS ORDERED: ROPIVACAINE 5 MG/ML 30 ML VIAL ONE (10:12)
[2023-12-08] MEDS ORDERED: diphenhydrAMINE 50 MG/ML 1 ML VIAL IVP PRN ×2 (15:23)
[2023-12-08] MEDS ORDERED: BENZOCAINE/MENTHOL SPRAY 1 GM/SPRAY AEROSOL TOPICAL PRN (15:23)
[2023-12-08] MEDS ORDERED: ZOLPIDEM 5 MG TAB PO PRN (15:23)
[2023-12-08] MEDS ORDERED: LANOLIN CREAM 1 GM TUBE TOPICAL PRN (15:23)
[2023-12-08] MEDS ORDERED: SIMETHICONE 80 MG CHEWABLE PO PRN (15:23)
[2023-12-08] MEDS ORDERED: diphenhydrAMINE 50 MG CAP PO PRN (15:23)
[2023-12-08] MEDS ORDERED: diphenhydrAMINE 25 MG CAP PO PRN (15:23)
[2023-12-08] MEDS ORDERED: HYDROCORTISONE 2.5% RECTAL CREAM 30 GM TUBE RECTAL PRN (15:23)
--- NOTE | 2023-12-08 15:23 | P.PROBDLV ---
Vaginal Delivery Note - . Vaginal Delivery Note: DATE OF SERVICE: 12/08/2023 PROCEDURE: Normal Vaginal Delivery ATTENDING: Dr. Tessy Ren MD ESTIMATED BLOOD LOSS: 200 mL FINDINGS: VFI, Apgars 9/9. Weight 7 pounds and 10 ounces (3445 grams) PROCEDURE: Ms. Gr is a 33 year old at 39 weeks presenting to labor and delivery for medical induction of labor for diet-controlled gestational diabetes. For further details on the , please review the admitting H&P. Pitocin was titrated per protocol. AROM at 1041 revealed clear amniotic fluid. The patient received epidural anesthesia per her request. The patient was completely dilated at 1454. She pushed effectively with Category I to II heart tones. A viable female was delivered at 1505 after reducing one nuchal cord over an intact perineum. The was placed on the maternal abdomen and bulb suctioned. The was noted to be spontaneously crying. Cord was clamped and cut after a 60-second delay. The infant was handed off to the pediatric team. Placenta was delivered whole with gentle cord traction at 1508. Oxytocin was started to facilitate uterine tone. Uterine fundus was found to be firm and below the umbilicus upon fundal massage. Thorough examination of the cervix, vagina, periurethral area, and perineum revealed no lacerations. The patient is stable and allowed to begin the bonding process.
[2023-12-08] MEDS: ACETAMINOPHEN TAB 500 MG TAB PO SCH (17:34)
[2023-12-08] MEDS: MEASLES-MUMPS-RUBELLA VACC/PF 12,500 UNIT/0.5 ML VIAL SQ ONE (19:03)
[2023-12-08] MEDS: IBUPROFEN 800 MG TAB PO SCH (19:04)
[2023-12-08] MEDS: SENNOSIDES-DOCUSATE SODIUM 1 EACH TAB PO SCH (20:54)
[2023-12-09 07:18] LABS: Basophils % (A) 0 %; Eosinophils # (A) 0.1 k/uL (0-0.7); Eosinophils % (A) 2 %; HCT 33.7 % (34.0-46.0); HGB 10.9 gm/dL (11.4-16.0); Lymphocytes # (A) 0.7 k/uL (1.0-4.8); Lymphocytes % (A) 13 %; MCH 32.1 pg (25.0-35.0); MCHC 32.2 g/dL (31.0-37.0); MCV 99.6 fL (80.0-100.0); Mean Platelet Volume 7.8; Monocytes # (A) 0.3 k/uL (0-1.0); Monocytes % (A) 4 %; Neutrophils # (A) 4.5 k/uL (1.3-7.7); Neutrophils % (A) 79 %; Platelet Count 184 k/uL (150-450); RBC 3.38 m/uL (3.80-5.40); RDW 13.3 % (11.5-15.5); WBC 5.8 k/uL (3.8-10.6)
--- NOTE | 2023-12-09 08:19 | P.DS ---
Providers Date of admission: 12/08/23 05:54 Expected date of discharge: 12/09/23 Attending physician: Tessy Ren MD Primary care physician: Stated None Hospital Course: Ms. Gr is a 33 year old now PPD#1 from vaginal breech delivery without complications. The patient is doing well this morning and had no acute events overnight. She has no complaints this morning. She reports minimal lochia, passing flatus, voiding without difficulty, ambulating, and eating/drinking without nausea or vomiting. doing well at bedside, formula feeding. She denies chest pain, shortness of breathing, fevers, or chills overnight. She denies pain or swelling in the legs. restrictions are reviewed with the patient including pelvic rest for 6 weeks. The patient is encouraged to call the office if she experiences any heavy bleeding, foul-smelling discharge, breast complaints, or any if she has any other concerns. She will follow up in the office at 6 weeks ofr appointment. She will need 2 hour GTT. All questions are answered. Assessment: 33 year old now PPD#1 s/p Patient Condition at Discharge: Stable Plan - Discharge Summary New Discharge Prescriptions: New Ibuprofen [Motrin] 600 mg PO Q6HR PRN #30 tab PRN Reason: Mild Pain (Scale 1 To 3) Acetaminophen Tab [Tylenol] 650 mg PO Q6H PRN #30 tab PRN Reason: Mild Pain (Scale 1 To 3) No Action Pnv No.95/Ferrous Fum/Folic AC [ Multivitamin Tablet] 1 each PO DAILY Aspirin 81 mg PO DAILY Discharge Medication List Pnv No.95/Ferrous Fum/Folic AC [ Multivitamin Tablet] 1 each PO DAILY 07/27/19 [History] Aspirin 81 mg PO DAILY 12/08/23 [History] Acetaminophen Tab [Tylenol] 650 mg PO Q6H PRN #30 tab 12/09/23 [Rx] Ibuprofen [Motrin] 600 mg PO Q6HR PRN #30 tab 12/09/23 [Rx] Follow up Appointment(s)/Referral(s): Tessy Ren MD [STAFF PHYSICIAN] - 01/16/24 10:15 am Activity/Diet/Wound Care/Special Instructions: Instructions 1. Do not begin any exercise program for 3 weeks. 2. Do not resume sexual relations for 6 weeks or longer if uncomfortable. 3. You may take tub baths or showers at any time. 4. You may use tampons if desired after 6 weeks. 5. Keep any areas repaired with stitches clean and dry. 6. If you are not nursing, wear a good fitting, supportive bra during the day and limit fluid intake for at least 1 week to prevent breast engorgement. 7. Call the office, , within the next week to make appointment for your 6 week checkup if it has not already been made. 8. Report any of the following occurrences to the doctor promptly: a. Heavy, excessive bleeding b. Chills, fever c. Burning or frequency of urination d. Pain or redness and breasts if nursing e. Increasing pain or swelling of vulva (stitches). In addition to the above instructions, the following additional should be followed: 1. No heavy lifting or straining (exercising) until after 6 week checkup. 2. Keep abdominal incision clean and dry: You may wear a dressing if more comfortable. 3. Make office appointment for 2 weeks after delivery date. Discharge Disposition: HOME SELF-CARE
[2023-12-09 08:50] VITALS: BP 130/83; PULSE 66; RESP 16; TEMP 98
== END 2023-12-09 15:52 | disposition home or self-care (01) | DRG 560 ==
LOC: 4FBP 05:54
PROVIDERS: ADMIT Obstetrics & Gynecology; ATTEND Obstetrics & Gynecology
PROC: 10E0XZZ Delivery of Products of Conception, External Approach (ICD-10-PCS; principal; 2023-12-08)
PROC: 10907ZC Drainage of Amniotic Fluid, Therapeutic from Products of Conception, Via Natural or Artificial Opening (ICD-10-PCS; 2023-12-08)
PROC: 3E033VJ Introduction of Other Hormone into Peripheral Vein, Percutaneous Approach (ICD-10-PCS; 2023-12-08)
DX: O24.420 Gestational diabetes mellitus in childbirth, diet controlled (principal); Z37.0 Single live birth; F19.11 Other psychoactive substance abuse, in remission; Z3A.39 39 weeks gestation of pregnancy; Z79.82 Long term (current) use of aspirin; Z86.19 Personal history of other infectious and parasitic diseases; Z87.59 Personal history of other complications of pregnancy, childbirth and the puerperium; Z86.14 Personal history of Methicillin resistant Staphylococcus aureus infection; Z87.891 Personal history of nicotine dependence; Z82.79 Family history of other congenital malformations, deformations and chromosomal abnormalities
CPT/HCPCS: 80306; 85025; 86850; 86900; 86901; 90707